=== PATIENT | female | born 1960 | race Caucasian/White ===

== ENCOUNTER → 2016-08-12 | Outpatient (CLI) | payer MEDICARE, OTHER ==
[~2016-08-12] MED LIST: ASPI81CH PO; BUPR300T34 PO; BUSP10TA PO; BUSPAR PO; CELEXA PO; CITA20TA4 PO; DOCU10CA PO; ESTR2TAB4 PO; ESTRACE PO; MAGN400C PO; MELA1TAB PO; MELATONIN PO; OXYC-299 PO; PERC2.5T PO; RIBO100C PO; TOPAMAX PO; TOPI50TA4 PO; TRAM50TA2 PO; TRAMADOL PO; TYLE325T5 PO; VICO5TAB16 PO; VICODAN PO; VITAMIN B 2 PO; WELL100T PO; WELLBUTRIN PO
--- NOTE | 2016-08-13 13:40 | REPMRS ---
Patient History The patient states she has not had a clinical breast exam in over a year. Family history of prostate cancer in father at age 50 and breast cancer in maternal grandmother. Taking estrogen for 30 years. Digital Mammo Screening Bilat: August 12, 2016 - Exam #: [id number] Bilateral CC and MLO view(s) were taken. Technologist: Evita Roque, Technologist Prior study comparison: November 20, 2012, digital bilateral screening mammo, performed at [facility]. July 25, 2011, digital bilateral screening mammo, performed at [facility]. FINDINGS: There are scattered fibroglandular densities. There has been no change in the appearance of the mammogram from the prior studies. There is a mild amount of scattered fibroglandular density which is fairly symmetric. There is no interval development of dominant mass, architectural distortion, or clustered microcalcification suggestive of malignancy. ASSESSMENT: BI-RADS/ACR category 1 mammogram. Negative. Recommendation Routine screening mammogram in 1 year (for women over age 40). This mammogram was interpreted with the aid of an FDA-approved computer-aided dectection system. Electronically Signed By: Hai Dao MD 08/13/16 0920
== END ==
LOC: M RAD 11:03
PROVIDERS: ATTEND Physician Assistant
DX: Z12.31 Encounter for screening mammogram for malignant neoplasm of breast (principal); Z80.3 Family history of malignant neoplasm of breast; Z79.890 Hormone replacement therapy

== ENCOUNTER 2016-09-02 13:00 | Outpatient (RCR) | payer MEDICARE, OTHER | END 2016-09-03 | LOC: M PT 13:00 | PROVIDERS: ATTEND Physician Assistant Medical | DX: Z51.89 Encounter for other specified aftercare (principal); M25.519 Pain in unspecified shoulder | CPT/HCPCS: 97110; 97162; G8984; G8985 ==

== ENCOUNTER 2016-09-18 14:30 | Outpatient (RCR) | payer MEDICARE, OTHER | END 2016-10-01 | LOC: M PT 14:30 | PROVIDERS: ATTEND Physician Assistant Medical | DX: Z51.89 Encounter for other specified aftercare (principal); M25.519 Pain in unspecified shoulder | CPT/HCPCS: 97110; G8978; G8979; G8985; G8986 ==

== ENCOUNTER 2016-11-27 11:00 | Outpatient (RCR) | payer MEDICARE, OTHER | END 2016-12-01 | LOC: M OT 11:00 | PROVIDERS: ATTEND Orthopaedic Surgery | DX: Z51.89 Encounter for other specified aftercare (principal); M18.12 Unilateral primary osteoarthritis of first carpometacarpal joint, left hand | CPT/HCPCS: 97022; 97110; 97140; 97165; G8984; G8985 ==

== ENCOUNTER → 2017-01-01 | Outpatient (RCR) | payer MEDICARE, OTHER | LOC: M OT 12-02 11:54 | PROVIDERS: ATTEND Orthopaedic Surgery | DX: Z51.89 Encounter for other specified aftercare (principal); M18.12 Unilateral primary osteoarthritis of first carpometacarpal joint, left hand | CPT/HCPCS: 97022; 97110; 97140; 97168; G8984; G8985 ==

== ENCOUNTER 2017-01-06 11:08 | Outpatient (RCR) | payer MEDICARE, OTHER ==
[~2017-01-06 11:08] MED LIST changes: +OXYC-141 PO; -OXYC-299 PO; -TOPI50TA4 PO; +TOPI50TA9 PO
== END 2017-01-31 ==
LOC: M OT 11:08
PROVIDERS: ATTEND Orthopaedic Surgery
DX: Z51.89 Encounter for other specified aftercare (principal); M18.12 Unilateral primary osteoarthritis of first carpometacarpal joint, left hand
CPT/HCPCS: 97110; G8985; G8986

== ENCOUNTER → 2017-01-17 | Outpatient (REF) | payer MEDICARE, OTHER ==
[~2017-01-17] MED LIST changes: -OXYC-141 PO; +OXYC-299 PO; +TOPI50TA4 PO; -TOPI50TA9 PO
[2017-01-17 17:05] LABS: MEAN CORPUSCULAR HEMOGLOBIN 32.2 pg (27.0-33.0); MEAN CORPUSCULAR HGB CONC 32.9 g/dl (32.0-36.5); MEAN CORPUSCULAR VOLUME 97.8 fl (80.0-96.0); PLATELET COUNT, AUTOMATED 247 k/mm3 (150-450); RED CELL DISTRIBUTION WIDTH 13.2 % (11.5-14.5); WHITE BLOOD COUNT 4.4 K/mm3 (4.0-10.0)
[2017-01-17 18:29] LABS: ALBUMIN 3.6 GM/DL (3.2-5.2); ALBUMIN/GLOBULIN RATIO 1.44 (1.00-1.93); ALKALINE PHOSPHATASE 89 U/L (45-117); ALT/SGPT 28 U/L (12-78); ANION GAP 4 MEQ/L (8-16); AST/SGOT 15 U/L (15-37); BILIRUBIN,TOTAL 0.5 MG/DL (0.2-1.0); BLOOD UREA NITROGEN 13 MG/DL (7-18); CALCIUM LEVEL 8.7 MG/DL (8.5-10.1); CARBON DIOXIDE LEVEL 29 MEQ/L (21-32); CHLORIDE LEVEL 111 MEQ/L (98-107); CREATININE FOR GFR 0.99 MG/DL (0.55-1.02); FREE T4 0.79 NG/DL (0.76-1.46); GLOMERULAR FILTRATION RATE > 60.0 (>51); GLUCOSE, FASTING 83 MG/DL (70-105); MAGNESIUM LEVEL 2.2 MG/DL (1.8-2.4); POTASSIUM SERUM 4.3 MEQ/L (3.5-5.1); SODIUM LEVEL 144 MEQ/L (136-145); TOTAL PROTEIN 6.1 GM/DL (6.4-8.2)
[2017-01-17 22:35] LABS: BASOPHILS 1 % (0-4); EOSINOPHILS 4 % (0-5)
[2017-01-21 14:15] LABS: H PYLORI SERUM QUANT IgG ABY <0.9 U/mL (0.0-0.8)
== END ==
LOC: M LABDRAW1 16:01
PROVIDERS: ATTEND Family Medicine
DX: R00.2 Palpitations (principal); K21.9 Gastro-esophageal reflux disease without esophagitis

== ENCOUNTER → 2017-08-15 | Outpatient (REF) | payer MEDICARE, OTHER ==
[2017-08-15 13:12] LABS: CHOLESTEROL LEVEL 196 MG/DL (<200); HDL CHOLESTEROL 97 MG/DL (>40); LDL CHOLESTEROL 86.6 MG/DL (<100); NON-HDL-C 99 MG/DL; TRIGLYCERIDES LEVEL 62 MG/DL (<150)
== END ==
LOC: M LABDRAW1 11:55
DX: Z13.220 Encounter for screening for lipoid disorders (principal); E78.00 Pure hypercholesterolemia, unspecified
CPT/HCPCS: 80061

== ENCOUNTER → 2017-08-22 | Outpatient (REF) | payer MEDICARE, OTHER ==
[2017-08-22 14:02] LABS: BASO % 0.8 % (0.0-1.0); EOS # 0.1 10^3/uL (0.0-0.50); EOS % 1.5 % (0.0-3.0); HEMATOCRIT 41.6 % (36.0-47.0); HEMOGLOBIN 13.8 g/dl (12.0-16.0); LYMPH # 1.1 10^3/uL (1.5-4.5); LYMPH % 27.7 % (24.0-44.0); MEAN CORPUSCULAR HEMOGLOBIN 31.6 pg (27.0-33.0); MEAN CORPUSCULAR HGB CONC 33.2 g/dl (32.0-36.5); MEAN CORPUSCULAR VOLUME 95.2 fl (80.0-96.0); MONO # 0.5 10^3/uL (0.0-0.8); MONO % 12.6 % (0.0-5.0); NEUTROPHILS # 2.2 10^3/uL (1.8-7.7); NEUTROPHILS % 57.4 % (36.0-66.0); PLATELET COUNT, AUTOMATED 241 10^3/uL (150-450); RED BLOOD COUNT 4.37 10^6/uL (4.00-5.40); RED CELL DISTRIBUTION WIDTH 13.1 % (11.5-14.5); WHITE BLOOD COUNT 3.9 10^3/uL (4.0-10.0)
[2017-08-22 14:33] LABS: ERYTHROCYTE SEDIMENTATION RATE 4 mm/hr (0-30)
[2017-08-22 14:59] LABS: C REACTIVE PROTEIN QUANTITATIV < 0.30 MG/DL (0.00-0.30)
== END ==
LOC: M LAB REF 13:25
DX: M12.811 Other specific arthropathies, not elsewhere classified, right shoulder (principal); Z96.611 Presence of right artificial shoulder joint
CPT/HCPCS: 86140

== ENCOUNTER → 2017-09-16 | Outpatient (CLI) | payer MEDICARE, OTHER | LOC: M WUC 16:48 | DX: M51.37 Other intervertebral disc degeneration, lumbosacral region (principal); M51.36 Other intervertebral disc degeneration, lumbar region; S20.221A Contusion of right back wall of thorax, initial encounter | CPT/HCPCS: 71101 ==

== ENCOUNTER → 2017-11-21 | Outpatient (REF) | payer MEDICARE, OTHER ==
[2017-11-21 16:26] LABS: ANION GAP 7 MEQ/L (8-16); BLOOD UREA NITROGEN 13 MG/DL (7-18); CALCIUM LEVEL 8.6 MG/DL (8.5-10.1); CARBON DIOXIDE LEVEL 26 MEQ/L (21-32); CHLORIDE LEVEL 110 MEQ/L (98-107); CREATININE FOR GFR 1.05 MG/DL (0.55-1.30); GLOMERULAR FILTRATION RATE 57.5 (>51); GLUCOSE, FASTING 102 MG/DL (70-100); POTASSIUM SERUM 3.9 MEQ/L (3.5-5.1); SODIUM LEVEL 143 MEQ/L (136-145)
== END ==
LOC: M LABDRAW1 13:17
DX: Z01.818 Encounter for other preprocedural examination (principal); N18.2 Chronic kidney disease, stage 2 (mild)
CPT/HCPCS: 80048

== ENCOUNTER → 2018-01-12 | Outpatient (REF) | payer MEDICARE, OTHER | LOC: M LAB REF 16:54 | DX: R30.0 Dysuria (principal) | CPT/HCPCS: 87086 ==

== ENCOUNTER → 2018-02-03 | Outpatient (CLI) | payer MEDICARE, OTHER ==
[2018-02-03 13:45] LABS: FREE T4 0.67 NG/DL (0.76-1.46)
[2018-02-04 11:12] LABS: THYROID PEROXIDASE ANTIBODY 29.2 U/ML (<60.0)
[2018-02-04 11:13] LABS: THYROGLOBULIN ANTIBODY 18.4 U/ML (<60.0)
[2018-02-05 14:19] LABS: ANTINUCLEAR ANTIBODIES DIRECT Negative (Negative)
== END ==
LOC: M LAB 12:42
DX: L50.8 Other urticaria (principal)
CPT/HCPCS: 84443

== ENCOUNTER 2018-09-05 11:41 | Emergency (ER) | payer MEDICARE, OTHER ==
[~2018-09-05] VITALS: Ht 167.6 cm; Wt 96.4 kg
[~2018-09-05 11:41] MED LIST changes: +OXYC-141 PO; -OXYC-299 PO; -TOPI50TA4 PO; +TOPI50TA9 PO
[2018-09-05] MEDS ORDERED: ROPI1TAB PO (11:55)
[2018-09-05] MEDS ORDERED: OMEP20CA3 PO (11:55)
[2018-09-05] MEDS ORDERED: LEVOTAB10 PO (11:55)
[2018-09-05] MEDS ORDERED: PREG25CA PO (11:55)
[2018-09-05] MEDS ORDERED: MELO7.5T7 PO (11:55)
[2018-09-05] MEDS ORDERED: ACETAMINOPHEN 325 MG TAB PO ONE (12:15)
--- NOTE | 2018-09-05 12:43 | REP ---
Clinical: Trauma/fall . Comparison: 04/20/2016 . Findings: The ventricles, sulci, and cisterns are normal in position and appearance. Thomas-white differentiation is maintained. No acute intracranial hemorrhage, mass/mass effect, pathology or trauma/injury. No evidence for acute infarction. No extra-axial fluid collection. Calvarium is intact. Paranasal sinuses and mastoid air cells are clear. Impression: Normal noncontrast head CT. No evidence for acute intracranial pathology or trauma/injury. Electronically Signed by Salbador Gore MD 09/05/2018 12:35 P
--- NOTE | 2018-09-05 12:48 | REP ---
Clinical: Trauma/fall. Technique: Axial noncontrast images from the skull base to the thoracic inlet with coronal and sagittal re-formations Findings: Normal alignment and lordosis is maintained. Mild generalized age-related changes are appreciated. Cervical vertebral bodies and spinous processes are intact and there is no evidence for acute fracture / compression injury or subluxation. Spinal canal is patent. Posterior elements are intact. Paravertebral soft tissues are normal. Impression: No evidence for acute pathology or trauma/injury. Electronically Signed by Salbador Gore MD 09/05/2018 12:40 P
--- NOTE | 2018-09-05 12:52 | REP ---
Clinical: Trauma/fall with tenderness. Technique: Axial images through the thoracic spine with coronal and sagittal re-formations. Findings: Normal alignment and kyphosis maintained. Vertebral bodies are intact. No acute fracture / compression injury or subluxation. Spinal canal is patent. Posterior elements and spinous processes are intact. Paravertebral soft tissues are normal. Impression: No acute fracture / compression injury or subluxation. Age-appropriate thoracic spine CT. Electronically Signed by Salbador Gore MD 09/05/2018 12:44 P
[2018-09-05 13:04] VITALS: BP 130/71
[2018-09-05] MEDS ORDERED: 8 HO650T2 PO (13:16)
== END 2018-09-05 13:26 | disposition home or self-care (01) ==
LOC: M ED 11:41
DX: M54.2 Cervicalgia (principal); M54.6 Pain in thoracic spine; R51 Headache; F33.9 Major depressive disorder, recurrent, unspecified; F41.9 Anxiety disorder, unspecified; Z79.899 Other long term (current) drug therapy; Z88.2 Allergy status to sulfonamides; Z88.5 Allergy status to narcotic agent; Z88.8 Allergy status to other drugs, medicaments and biological substances
CPT/HCPCS: 70450; 72125; 72128; 99283; G0463

== ENCOUNTER → 2018-10-30 | Outpatient (CLI) | payer MEDICARE, OTHER ==
[~2018-10-30] MED LIST changes: +8 HO650T2 PO; +LEVOTAB10 PO; +MELO7.5T7 PO; +OMEP20CA3 PO; +PREG25CA PO; +ROPI1TAB PO
--- NOTE | 2018-10-30 12:39 | REPMRS ---
Patient History The patient states she has not had a clinical breast exam in over a year. Family history of breast cancer in maternal grandmother, prostate cancer at age 50 in father. Benign excisional biopsy of the left breast, 2000. Taking estrogen for 31 years. 3D TOMOSYNTHESIS WAS PERFORMED. Digital Woman Screen Mammo: October 30, 2018 - Exam #: [id number] Bilateral CC and MLO view(s) were taken. Technologist: Gayatri Cesar, Technologist Prior study comparison: August 12, 2016, bilateral digital mammo screening bilat, performed at [facility]. 2013, digital bilateral screening mammo, performed at [facility]. FINDINGS: The breast tissue is heterogeneously dense. This may lower the sensitivity of mammography. There has been no change in the appearance of the mammogram from the prior studies. There is a moderate amount of residual fibroglandular tissue which is fairly symmetric. There is no interval development of dominant mass, areas of architectural distortion, or clustered microcalcification typical of malignancy. Assessment: BI-RADS/ACR category 1 mammogram. Negative Mammogram. Recommendation Routine screening mammogram in 1 year (for women over age 40). This mammogram was interpreted with the aid of an FDA-approved computer-aided dectection system. Electronically Signed By: Camron Thomas MD 10/30/18 [id number]
--- NOTE | 2018-11-03 09:36 | DEXA ---
AP SPINE L1 - L4 1.444 2.0 3.1 LT FEMUR TOTAL 0.964 -0.4 0.5 LT NECK 0.920 -0.9 0.3 RT FEMUR TOTAL 0.930 -0.6 0.2 RT NECK 0.883 -1.1 0.0 TOTAL BODY TOTAL OTHER COMMENTS: Normal bone densitometry of the spine. Normal bone densitometry of the left hip. There is low bone density of the right hip. The density of the spine is an N/A. The density of the left hip has decreased 2.2% since 03/27/2005. The density of the right hip has decreased 9.7% since 03/27/2005. The decreased density of the left hip does represent a significant change. The decreased density of the right hip does represent a significant change. FOLLOW-UP: Recommendation for the next bone density exam: 2 years. MCKENNA
== END ==
LOC: M WHC 11:08
PROVIDERS: ATTEND Physician Assistant
DX: Z12.31 Encounter for screening mammogram for malignant neoplasm of breast (principal); Z13.820 Encounter for screening for osteoporosis; M85.851 Other specified disorders of bone density and structure, right thigh

== ENCOUNTER → 2019-02-15 | Outpatient (REF) | payer MEDICARE ==
[~2019-02-15] MED LIST changes: -ASPI81CH PO; +ASPI81CH49 PO; -CITA20TA4 PO; +CITA20TA6 PO; -OMEP20CA3 PO; +OMEP20CA4 PO; -VICO5TAB16 PO; +VICO5TAB17 PO
[2019-02-15 11:51] LABS: EOS # 0.1 10^3/uL (0.0-0.50); EOS % 2.2 % (0.0-3.0); HEMATOCRIT 42.5 % (36.0-47.0); HEMOGLOBIN 13.9 g/dl (12.0-15.5); LYMPH # 1.1 10^3/uL (1.5-4.5); LYMPH % 25.8 % (24.0-44.0); MEAN CORPUSCULAR HEMOGLOBIN 31.4 pg (27.0-33.0); MEAN CORPUSCULAR HGB CONC 32.7 g/dl (32.0-36.5); MEAN CORPUSCULAR VOLUME 95.9 fl (80.0-96.0); MONO # 0.5 10^3/uL (0.0-0.8); MONO % 12.7 % (0.0-5.0); NEUTROPHILS # 2.4 10^3/uL (1.8-7.7); NEUTROPHILS % 58.1 % (36.0-66.0); PLATELET COUNT, AUTOMATED 242 10^3/uL (150-450); RED BLOOD COUNT 4.43 10^6/uL (4.00-5.40); WHITE BLOOD COUNT 4.1 10^3/uL (4.0-10.0)
[2019-02-15 11:58] LABS: ALBUMIN 3.6 GM/DL (3.2-5.2); BILIRUBIN,TOTAL 0.3 MG/DL (0.2-1.0); CREATININE FOR GFR 1.04 MG/DL (0.55-1.30); GLOMERULAR FILTRATION RATE 57.9 (>51); POTASSIUM SERUM 4.8 MEQ/L (3.5-5.1); TOTAL PROTEIN 6.2 GM/DL (6.4-8.2)
== END ==
LOC: M LABDRAW1 08:56
PROVIDERS: ATTEND Family Medicine
DX: K21.9 Gastro-esophageal reflux disease without esophagitis (principal); R11.10 Vomiting, unspecified

== ENCOUNTER → 2020-04-07 | Outpatient (CLI) | payer MEDICARE ==
[~2020-04-07] MED LIST changes: -BUPR300T34 PO; +BUPR300T92 PO; +OMEP1CAP73 PO; -OMEP20CA4 PO; -ROPI1TAB PO; +ROPI1TAB3 PO
[2020-04-07 14:25] LABS: BASO % 0.6 % (0.0-1.0); EOS # 0.1 10^3/uL (0.0-0.5); EOS % 1.7 % (0.0-3.0); HEMATOCRIT 44.5 % (36.0-47.0); HEMOGLOBIN 14.2 g/dl (12.0-15.5); LYMPH # 1.2 10^3/uL (1.5-5.0); LYMPH % 24.8 % (24.0-44.0); MEAN CORPUSCULAR HEMOGLOBIN 31.3 pg (27.0-33.0); MEAN CORPUSCULAR HGB CONC 31.9 g/dl (32.0-36.5); MONO # 0.6 10^3/uL (0.0-0.8); MONO % 11.5 % (0.0-5.0); NEUTROPHILS # 2.9 10^3/uL (1.5-8.5); NEUTROPHILS % 61.2 % (36.0-66.0); PLATELET COUNT, AUTOMATED 253 10^3/uL (150-450); RED BLOOD COUNT 4.54 10^6/uL (4.00-5.40); WHITE BLOOD COUNT 4.8 10^3/uL (4.0-10.0)
[2020-04-07 15:05] LABS: BILIRUBIN,TOTAL 0.4 MG/DL (0.2-1.0); CREATININE FOR GFR 1.04 MG/DL (0.55-1.30); GLOMERULAR FILTRATION RATE 57.7 (>51); POTASSIUM SERUM 4.6 MEQ/L (3.5-5.1)
[2020-04-07 15:06] LABS: ALBUMIN 3.7 GM/DL (3.2-5.2); CHOLESTEROL RISK RATIO 3.052 (<5); FREE T4 0.79 NG/DL (0.76-1.46); THYROID STIMULATING HORMONE 1.63 uIU/ML (0.358-3.740); TOTAL PROTEIN 6.7 GM/DL (6.4-8.2)
== END ==
LOC: M PLALAB 11:07
PROVIDERS: ATTEND Family Medicine
DX: Z13.220 Encounter for screening for lipoid disorders (principal); Z13.29 Encounter for screening for other suspected endocrine disorder; Z13.0 Encounter for screening for diseases of the blood and blood-forming organs and certain disorders involving the immune mechanism

== ENCOUNTER → 2020-04-07 | Outpatient (CLI) | payer MEDICARE ==
--- NOTE | 2020-04-07 12:03 | REPMRS ---
Patient History The patient states she has not had a clinical breast exam in over a year. Family history of breast cancer in maternal grandmother, prostate cancer at age 50 in father. Benign excisional biopsy of the left breast, 2000. Took estrogen for 31 years. 3D TOMOSYNTHESIS WAS PERFORMED. [facility] for [facility] cancer [facility] 7.7%. VOLPARA DENSITY B. Digital Woman Screen Mammo: April 07, 2020 - Exam #: [id number] Bilateral CC and MLO view(s) were taken. Technologist: Evita Roque, Technologist Prior study comparison: October 30, 2018, bilateral digital woman screen mammo performed at [facility] [place]. August 12, 2016, bilateral digital mammo screening bilat, performed at [facility]. FINDINGS: There are scattered fibroglandular densities. There has been no change in the appearance of the mammogram from the prior studies. There is a mild amount of residual fibroglandular tissue which is fairly symmetric. There is no interval development of dominant mass, architectural distortion, or clustered microcalcification suggestive of malignancy. Assessment: BI-RADS/ACR category 1 mammogram. Negative Mammogram. Recommendation Routine screening mammogram in 1 year (for women over age 40). This mammogram was interpreted with the aid of an FDA-approved computer-aided dectection system. Electronically Signed By: Camron Thomas MD 04/07/20 [id number]
== END ==
LOC: M WHC 10:28
PROVIDERS: ATTEND Family Medicine
DX: Z12.31 Encounter for screening mammogram for malignant neoplasm of breast (principal); Z79.899 Other long term (current) drug therapy

== ENCOUNTER → 2020-06-16 | Outpatient (CLI) | payer MEDICARE | LOC: M LABSMTC 11:37 | PROVIDERS: ATTEND Physical Medicine & Rehabilitation | DX: Z01.812 Encounter for preprocedural laboratory examination (principal); Z20.828 Contact with and (suspected) exposure to other viral communicable diseases ==

== ENCOUNTER → 2020-08-17 | Outpatient (REF) | payer MEDICARE | LOC: M LAB REF 17:22 | PROVIDERS: ATTEND Family Medicine | DX: J02.9 Acute pharyngitis, unspecified (principal) ==

== ENCOUNTER → 2020-09-06 | Outpatient (CLI) | payer MEDICARE | LOC: M LABSMTC 09:29 | PROVIDERS: ATTEND Physical Medicine & Rehabilitation | DX: Z20.822 Contact with and (suspected) exposure to COVID-19 (principal) ==

== ENCOUNTER → 2020-10-25 | Outpatient (CLI) | payer MEDICARE ==
[2020-10-25 12:57] LABS: CREATININE FOR GFR 1.11 MG/DL (0.55-1.30); GLOMERULAR FILTRATION RATE 53.4 (>45)
== END ==
LOC: M WUC 09:09
PROVIDERS: ATTEND Nurse Practitioner Family
DX: M54.5 Low back pain (principal)

== ENCOUNTER → 2020-10-27 | Outpatient (CLI) | payer MEDICARE ==
[~2020-10-27] MED LIST changes: +PROHANCE 279.3MG/ML 15ML VIAL As Ordered ONE
--- NOTE | 2020-10-27 16:19 | REPVR ---
PROCEDURE INFORMATION: Exam: MR Lumbar Spine Without and With Contrast. Exam date and time: 10/27/2020 8:33 AM Age: 60 years old Clinical indication: Low back pain TECHNIQUE: Imaging protocol: Multiplanar magnetic resonance images of the lumbar spine without and with contrast. Contrast material: PROHANCE; Contrast volume: 9 ml; Contrast route: INTRAVENOUS (IV); COMPARISON: CR SPINE LS COMPLETE 09/16/2017 5:10 PM FINDINGS: Vertebrae: There is a mild lumbar levoscoliosis. There is no fracture or listhesis. Aside from scattered hemangiomas, most pronounced at L4, marrow signal is within normal limits. There is severe intervertebral disc space loss at L3/4, L4/5 and L5/S1. Spinal cord: Normal signal. No cord compression. L1-L2: There is shallow disc bulging. There is moderate facet hypertrophy. The spinal canal and neural foramina are patent. L2-L3: There is shallow disc bulging. There is moderate facet hypertrophy. The spinal canal and neural foramina are patent. L3-L4: There is shallow disc bulging. There is moderate facet and ligamentous hypertrophy. The spinal canal and neural foramina are patent. L4-L5: There is diffuse disc bulging asymmetric to the left. There is moderate facet and ligamentous hypertrophy. The spinal canal and neural foramina are patent. L5-S1: There is shallow disc bulging. There is moderate facet hypertrophy. The spinal canal and neural foramina are patent. Soft tissues: Unremarkable. IMPRESSION: Degenerative disc disease and spondylosis without overt canal or neural foraminal compromise. Electronically signed by: Kathy Inman On 10/27/2020 16:19:20 PM
== END ==
LOC: M RAD 07:40
PROVIDERS: ATTEND Nurse Practitioner Family
DX: M54.5 Low back pain (principal)
CPT/HCPCS: 72158; A9576

== ENCOUNTER → 2021-09-10 | Outpatient (CLI) | payer MEDICARE ==
[~2021-09-10] MED LIST changes: -PROHANCE 279.3MG/ML 15ML VIAL As Ordered ONE
== END ==
LOC: M WHC 07:55
PROVIDERS: ATTEND Family Medicine
DX: Z12.31 Encounter for screening mammogram for malignant neoplasm of breast (principal); M84.80 Other disorders of continuity of bone, unspecified site

== ENCOUNTER → 2021-12-19 | Outpatient (CLI) | payer MEDICARE ==
[2021-12-19 10:28] LABS: BASO % 0.7 % (0.0-1.0); EOS # 0.1 10^3/uL (0.0-0.5); EOS % 2.3 % (0.0-3.0); HEMATOCRIT 42.1 % (36.0-47.0); HEMOGLOBIN 13.7 g/dl (12.0-15.5); LYMPH # 1.1 10^3/uL (1.5-5.0); MEAN CORPUSCULAR HEMOGLOBIN 31.4 pg (27.0-33.0); MEAN CORPUSCULAR HGB CONC 32.5 g/dl (32.0-36.5); MEAN CORPUSCULAR VOLUME 96.3 fl (80.0-96.0); MONO # 0.5 10^3/uL (0.0-0.8); MONO % 12.1 % (2.0-8.0); NEUTROPHILS # 2.6 10^3/uL (1.5-8.5); NEUTROPHILS % 58.4 % (36.0-66.0); PLATELET COUNT, AUTOMATED 237 10^3/uL (150-450); RED BLOOD COUNT 4.37 10^6/uL (4.00-5.40); WHITE BLOOD COUNT 4.4 10^3/uL (4.0-10.0)
[2021-12-19 10:38] LABS: ALBUMIN 3.2 GM/DL (3.2-5.2); BILIRUBIN,TOTAL 0.5 MG/DL (0.2-1.0); CALCIUM LEVEL 9.1 MG/DL (8.8-10.2); CHOLESTEROL RISK RATIO 2.679 (<5); CREATININE FOR GFR 1.14 MG/DL (0.55-1.30); FREE T4 0.74 NG/DL (0.76-1.46); GLOMERULAR FILTRATION RATE 51.6 (>45); PERCENT SATURATION 27.3 % (13.2-45.0); POTASSIUM SERUM 4.4 MEQ/L (3.5-5.1); THYROID STIMULATING HORMONE 2.14 uIU/ML (0.358-3.740); TOTAL PROTEIN 6.1 GM/DL (6.4-8.2)
[2021-12-21 14:43] LABS: FOLATE 14.3 NG/ML
== END ==
LOC: M WUC 08:07
PROVIDERS: ATTEND Nurse Practitioner Adult Health
DX: E78.00 Pure hypercholesterolemia, unspecified (principal); J45.20 Mild intermittent asthma, uncomplicated; R55 Syncope and collapse

== ENCOUNTER → 2022-01-07 | Outpatient (CLI) | payer MEDICARE | LOC: M EKG 09:07 | PROVIDERS: ATTEND Nurse Practitioner Adult Health | DX: R55 Syncope and collapse (principal) ==

== ENCOUNTER → 2022-04-10 | Outpatient (CLI) | payer MEDICARE ==
[2022-04-10 12:52] LABS: BASO % 0.6 % (0.0-1.0); EOS # 0.1 10^3/uL (0.0-0.5); EOS % 1.3 % (0.0-3.0); HEMATOCRIT 44.2 % (36.0-47.0); LYMPH # 1.2 10^3/uL (1.5-5.0); LYMPH % 23.5 % (24.0-44.0); MEAN CORPUSCULAR HEMOGLOBIN 31.8 pg (27.0-33.0); MEAN CORPUSCULAR HGB CONC 31.7 g/dl (32.0-36.5); MEAN CORPUSCULAR VOLUME 100.5 fl (80.0-96.0); MONO # 0.5 10^3/uL (0.0-0.8); MONO % 9.2 % (2.0-8.0); NEUTROPHILS # 3.4 10^3/uL (1.5-8.5); NEUTROPHILS % 65.2 % (36.0-66.0); PLATELET COUNT, AUTOMATED 245 10^3/uL (150-450); WHITE BLOOD COUNT 5.2 10^3/uL (4.0-10.0)
[2022-04-10 13:41] LABS: ALBUMIN 3.6 GM/DL (3.2-5.2); ALT/SGPT 15 U/L (12-78); BILIRUBIN,TOTAL 0.4 MG/DL (0.2-1.0); BLOOD UREA NITROGEN 15 MG/DL (7-18); CALCIUM LEVEL 9.2 MG/DL (8.8-10.2); CARBON DIOXIDE LEVEL 25 MEQ/L (21-32); CHLORIDE LEVEL 110 MEQ/L (98-107); CREATININE FOR GFR 1.04 MG/DL (0.55-1.30); GLOMERULAR FILTRATION RATE 57.4 (>45); GLUCOSE, FASTING 119 MG/DL (70-100); POTASSIUM SERUM 4.5 MEQ/L (3.5-5.1); SODIUM LEVEL 140 MEQ/L (136-145); TOTAL PROTEIN 6.3 GM/DL (6.4-8.2)
[2022-04-10 14:19] LABS: HEPATITIS B SURFACE ANTIGEN NEGATIVE (NEGATIVE)
[2022-04-10 14:47] LABS: HEPATITIS B CORE ANTIBODY IGM NEGATIVE (NEGATIVE); HEPATITIS C VIRUS ABY INDEX < 0.0 INDEX (<0.8)
== END ==
LOC: M WUC 09:19
PROVIDERS: ATTEND Nurse Practitioner Adult Health
DX: R10.11 Right upper quadrant pain (principal)

== ENCOUNTER → 2022-04-25 | Outpatient (CLI) | payer MEDICARE ==
[~2022-04-25] MED LIST changes: +GASTROGRAFIN SOLUTION 30ML (Q9963) As Ordered ONE; +ISOVUE-370 76% 100ML VIAL As Ordered ONE
== END ==
LOC: M RAD 08:33
PROVIDERS: ATTEND Nurse Practitioner Adult Health
DX: R10.11 Right upper quadrant pain (principal); R68.81 Early satiety
CPT/HCPCS: 74177; Q9963; Q9967

== ENCOUNTER → 2022-05-10 | Outpatient (CLI) | payer MEDICARE ==
[~2022-05-10] MED LIST changes: -GASTROGRAFIN SOLUTION 30ML (Q9963) As Ordered ONE; -ISOVUE-370 76% 100ML VIAL As Ordered ONE
[2022-05-13 13:07] LABS: H PYLORI SERUM QUANT IGA <9.0 units (0.0-8.9); H PYLORI SERUM QUANT IGM <9.0 units (0.0-8.9); H PYLORI SERUM QUANT IgG ABY 0.58 (0.00-0.79)
== END ==
LOC: M WUC 09:52
PROVIDERS: ATTEND Nurse Practitioner Adult Health
DX: R10.11 Right upper quadrant pain (principal)

== ENCOUNTER → 2022-05-22 | Outpatient (CLI) | payer MEDICARE ==
[2022-05-22 19:10] LABS: HEMATOCRIT 43.4 % (36.0-47.0); HEMOGLOBIN 13.6 g/dl (12.0-15.5); MEAN CORPUSCULAR HEMOGLOBIN 31.3 pg (27.0-33.0); MEAN CORPUSCULAR HGB CONC 31.3 g/dl (32.0-36.5); PLATELET COUNT, AUTOMATED 249 10^3/uL (150-450); RED BLOOD COUNT 4.34 10^6/uL (4.00-5.40); WHITE BLOOD COUNT 5.9 10^3/uL (4.0-10.0)
[2022-05-22 19:53] LABS: ERYTHROCYTE SEDIMENTATION RATE 6 mm/hr (0-30)
== END ==
LOC: M WUC 13:01
PROVIDERS: ATTEND Orthopaedic Surgery
DX: M25.511 Pain in right shoulder (principal)

== ENCOUNTER → 2022-08-07 | Outpatient (REF) | payer MEDICARE | LOC: M LAB REF 17:16 | PROVIDERS: ATTEND Family Medicine | DX: R30.0 Dysuria (principal) ==

== ENCOUNTER → 2022-08-15 | Outpatient (REF) | payer MEDICARE | LOC: M LAB REF 16:59 | PROVIDERS: ATTEND Family Medicine | DX: R39.15 Urgency of urination (principal); N23 Unspecified renal colic ==

== ENCOUNTER → 2022-08-27 | Outpatient (CLI) | payer MEDICARE | LOC: M RAD 12:38 | PROVIDERS: ATTEND Family Medicine | DX: M54.50 Low back pain, unspecified (principal); R10.2 Pelvic and perineal pain; R39.15 Urgency of urination; M47.816 Spondylosis without myelopathy or radiculopathy, lumbar region; M47.817 Spondylosis without myelopathy or radiculopathy, lumbosacral region ==

== ENCOUNTER → 2023-07-01 | Outpatient (CLI) | payer MEDICARE ==
[~2023-07-01] MED LIST changes: -ROPI1TAB3 PO; +ROPI1TAB73 PO; +TOPI-254 PO; -TOPI50TA9 PO
== END ==
LOC: M WHC 09:22
PROVIDERS: ATTEND Family Medicine
DX: Z12.31 Encounter for screening mammogram for malignant neoplasm of breast (principal)

== ENCOUNTER → 2024-04-08 | Outpatient (CLI) | payer MEDICARE ==
[~2024-04-08] MED LIST changes: +BUPR-597 PO; -BUPR300T92 PO; +TOPI-21 PO; -TOPI-254 PO
== END ==
LOC: M RAD 12:41
PROVIDERS: ATTEND Nurse Practitioner Adult Health
DX: R32 Unspecified urinary incontinence (principal)

== ENCOUNTER → 2024-11-19 | Outpatient (CLI) | payer MEDICARE | LOC: M WHC 12:32 | PROVIDERS: ATTEND Nurse Practitioner Adult Health | DX: D49.89 Neoplasm of unspecified behavior of other specified sites (principal) ==

== ENCOUNTER → 2024-12-17 | Outpatient (CLI) | payer MEDICARE ==
[~2024-12-17] MED LIST changes: -BUPR-597 PO; +BUPR-766 PO; -PREG25CA PO; +PREG25CA63 PO
== END ==
LOC: M WHC 13:33
PROVIDERS: ATTEND Nurse Practitioner Adult Health
DX: Z12.31 Encounter for screening mammogram for malignant neoplasm of breast (principal); R92.313 Mammographic fatty tissue density, bilateral breasts; Z13.820 Encounter for screening for osteoporosis; M85.851 Other specified disorders of bone density and structure, right thigh

== ENCOUNTER → 2024-12-21 | Outpatient (CLI) | payer MEDICARE | LOC: M RAD 10:35 | PROVIDERS: ATTEND Nurse Practitioner Adult Health | DX: R07.9 Chest pain, unspecified (principal) ==

== ENCOUNTER → 2025-02-08 | Outpatient (REF) | payer MEDICARE | LOC: M LAB REF 17:36 | PROVIDERS: ATTEND Nurse Practitioner Adult Health | DX: R30.0 Dysuria (principal) ==

== ENCOUNTER → 2025-05-30 | Outpatient (CLI) | payer MEDICARE ==
[2025-05-30 12:31] LABS: PLATELET COUNT, AUTOMATED 258 10^3/uL (150-450)
[2025-05-30 13:03] LABS: ALT/SGPT 11.0 U/L (7.0-40); AST/SGOT 15.0 U/L (<34); CALCIUM LEVEL 9.0 MG/DL (8.3-10.6); CARBON DIOXIDE LEVEL 23.0 MMOL/L (20-31); CHLORIDE LEVEL 110.0 MMOL/L (98-107); CREATININE FOR GFR 1.03 MG/DL (0.55-1.30); GLOMERULAR FILTRATION RATE 60.7 (>45); POTASSIUM SERUM 3.9 MMOL/L (3.5-5.1); SODIUM LEVEL 143.0 MMOL/L (136-145)
== END ==
LOC: M WUC 10:15
PROVIDERS: ATTEND Physician Assistant
DX: R07.9 Chest pain, unspecified (principal); R13.10 Dysphagia, unspecified